=== PATIENT | female | born 1955 | race Caucasian/White ===

== ENCOUNTER 2023-11-11 11:02 | Observation (INO) | payer MEDICARE ==
[2023-11-11 11:53] LABS: #Basophils 0.03 10x3/uL (0.0-0.2); %Basophils 0.4 % (0.0-1.0); %Eosinophils 1.1 % (0.0-10.0); %Lymphocytes 29.1 % (21.0-51.0); %Monocytes 7.6 % (0.0-10.0); %Neutrophils 61.7 % (42.0-75.0); Hematocrit 42.3 % (36.0-47.0); Hemoglobin 13.9 g/dL (12.0-16.0); Mean Corpuscular HGB CONC 32.9 g/dL (32.0-36.0); Mean Corpuscular Hemoglobin 31.8 pg (27.0-31.0); Mean Corpuscular Volume 96.8 fL (78.0-98.0); Mean Platelet Volume 9.2 fL (7.4-10.4); Platelet Count 204 10x3/uL (130-400); Red Blood Cell (RBC) Count 4.37 mill/uL (4.20-5.40)
[2023-11-11] MEDS ORDERED: Aspirin Chewable 81 MG TAB ONE (12:04)
[2023-11-11 12:16] LABS: ALT (SGPT) 13 U/L (8-55); AST (SGOT) 15 U/L (5-34); Albumin 4.3 g/dL (3.4-4.8); Alkaline Phosphatase 103 U/L (40-110); Anion Gap 13 mmol/L (10-20); BUN (Urea Nitrogen) 14 mg/dL (9.8-20.1); Bilirubin, Total 0.4 mg/dL (0.2-1.2); Calc. Creatinine Clearance 0 mL/min (70-130); Calcium 9.7 mg/dL (7.8-10.44); Carbon Dioxide 21 mmol/L (23-31); Chloride 106 mmol/L (98-107); Estimated GFR 91; Globulin 3.3 g/dL (2.4-3.5); Glucose 104 mg/dL (80-115); Lipase 43 U/L (8-78); Magnesium 1.9 mg/dL (1.6-2.6); Potassium 4.2 mmol/L (3.5-5.1); Protein, Total 7.6 g/dL (5.8-8.1); Sodium 136 mmol/L (136-145)
[2023-11-11 12:17] LABS: Troponin I Less than 0.010 ng/mL (< 0.028)
[2023-11-11] MEDS ORDERED: Ondansetron ODT 4 MG TAB PO PRN (13:32)
[2023-11-11] MEDS ORDERED: Ondansetron PF 4 MG/2 ML Vial IVP PRN (13:32)
[2023-11-11] MEDS ORDERED: Acetaminophen 325 MG TAB PO PRN (13:32)
[2023-11-11] MEDS ORDERED: HYDROcodone/Acetaminophen 5/325 mg Tablet PO PRN (13:32)
[2023-11-11] MEDS ORDERED: Acetaminophen 650 MG Suppository PR PRN (13:32)
[2023-11-11 13:53] LABS: Bacteria/HPF None Seen HPF (None Seen); Bilirubin Negative (Negative); Blood, Urine Negative (Negative); CAUTI Indications for Culture Dysuria,urgency,freq; Clarity Clear (Clear); Glucose, Urine (Dipstick) Normal (Negative); Ketone, Urine Negative (Negative); Leukocyte 25 Leu/uL (Negative); Nitrite Negative (Negative); Protein, Urine (Dipstick) 10 mg/dL (Neg-Trace); RBC/HPF None Seen HPF (0-3); Specific Gravity, Urine 1.031 (1.002-1.036); Squamous Epithelial 0-3 HPF (0-3); Urobilinogen Normal mg/dL (Less than 2); WBC/HPF 0-3 HPF (0-3); pH, Urine 5.5 (5.0-9.0)
[2023-11-11 13:54] LABS: Urine Culture Reflex No No
[2023-11-11 15:52] VITALS: BMI 24.0
[2023-11-11 16:14] LABS: Troponin I Less than 0.010 ng/mL (< 0.028)
[2023-11-11 18:13] LABS: Troponin I Less than 0.010 ng/mL (< 0.028)
[2023-11-11] MEDS: HYDROcodone/Acetaminophen 5/325 mg Tablet PO PRN (19:54)
[2023-11-11] MEDS: Famotidine 20 MG TAB PO SCH (19:55)
[2023-11-11] MEDS: Valsartan 80 MG TAB PO SCH (19:55)
[2023-11-11] MEDS: Atorvastatin Calcium 40 MG TAB PO SCH (19:55)
[2023-11-12 04:32] LABS: #Basophils 0.04 10x3/uL (0.0-0.2); %Basophils 0.7 % (0.0-1.0); %Eosinophils 1.7 % (0.0-10.0); %Lymphocytes 45.7 % (21.0-51.0); %Monocytes 8.4 % (0.0-10.0); Hemoglobin 13.8 g/dL (12.0-16.0); Mean Corpuscular HGB CONC 32.9 g/dL (32.0-36.0); Mean Corpuscular Hemoglobin 31.7 pg (27.0-31.0); Mean Corpuscular Volume 96.6 fL (78.0-98.0); Platelet Count 185 10x3/uL (130-400); RBC Distribution Width 14.8 % (11.5-14.5); Red Blood Cell (RBC) Count 4.35 mill/uL (4.20-5.40)
[2023-11-12 04:51] LABS: Anion Gap 16 mmol/L (10-20); BUN (Urea Nitrogen) 14 mg/dL (9.8-20.1); Calc. Creatinine Clearance 69 mL/min (70-130); Calcium 9.4 mg/dL (7.8-10.44); Carbon Dioxide 19 mmol/L (23-31); Chloride 106 mmol/L (98-107); Estimated GFR 93; Glucose 99 mg/dL (80-115); Potassium 3.9 mmol/L (3.5-5.1); Sodium 137 mmol/L (136-145)
[2023-11-12] MEDS: Enoxaparin 40 MG (0.4 mL) SYRINGE SC SCH (08:05)
[2023-11-12] MEDS: Clopidogrel Bisulfate 75 MG TAB PO SCH (08:08)
[2023-11-12] MEDS: Aspirin 81 mg Enteric Coated Tablet PO SCH (08:08)
[2023-11-12] MEDS: Sertraline 25 MG TAB PO SCH (08:09)
[2023-11-12] MEDS ORDERED: Valsartan 80 MG TAB PO SCH (09:00)
[2023-11-12] MEDS ORDERED: ADENOSINE 60 MG/20 ML SDV ONE (09:19)
[2023-11-12 11:55] VITALS: BP 114/58; TEMP 98.5
[2023-11-12] MEDS: Ketorolac Tromethamine 30 MG (1 mL) VIAL IVP SCH (14:21)
== END 2023-11-12 15:24 | disposition home or self-care (01) ==
LOC: SUATTDRO 11:02 → ERS 11:02 → 2SW 15:18
PROVIDERS: ADMIT Family Medicine; ATTEND Family Medicine
PROC: B246ZZZ Ultrasonography of Right and Left Heart (ICD-10-PCS; principal; 2023-11-11)
DX: R07.9 Chest pain, unspecified (principal); I25.10 Atherosclerotic heart disease of native coronary artery without angina pectoris; E78.5 Hyperlipidemia, unspecified; I25.2 Old myocardial infarction; F32.A Depression, unspecified; B19.20 Unspecified viral hepatitis C without hepatic coma; I10 Essential (primary) hypertension; M79.602 Pain in left arm; Z79.02 Long term (current) use of antithrombotics/antiplatelets; Z79.899 Other long term (current) drug therapy; Z88.0 Allergy status to penicillin; Z95.5 Presence of coronary angioplasty implant and graft; Z90.710 Acquired absence of both cervix and uterus; Z90.89 Acquired absence of other organs
CPT/HCPCS: 71045; 78452; 80048; 80053; 81001; 83690; 83735; 83880; 84484 ×2; 85025 ×2; 93005; 93017; 93306; 99285; A9502; J0153; J1650; J1885; 36415; 96372; 96374; G0378

== ENCOUNTER 2023-12-09 06:18 | Day surgery (SDC) | payer MEDICARE ==
[2023-12-08 14:04] VITALS: BMI 24.8
[2023-12-09 07:32] LABS: #Basophils 0.05 10x3/uL (0.0-0.2); %Basophils 0.7 % (0.0-1.0); %Lymphocytes 31.1 % (21.0-51.0); %Monocytes 10.8 % (0.0-10.0); %Neutrophils 54.9 % (42.0-75.0); Hematocrit 43.4 % (36.0-47.0); Hemoglobin 14.4 g/dL (12.0-16.0); Mean Corpuscular HGB CONC 33.2 g/dL (32.0-36.0); Mean Corpuscular Hemoglobin 31.7 pg (27.0-31.0); Mean Corpuscular Volume 95.6 fL (78.0-98.0); Mean Platelet Volume 10.4 fL (7.4-10.4); Platelet Count 212 10x3/uL (130-400); RBC Distribution Width 14.5 % (11.5-14.5); Red Blood Cell (RBC) Count 4.54 mill/uL (4.20-5.40)
[2023-12-09] MEDS ORDERED: Verapamil 5 MG/2 ML VIAL ONE (07:58)
[2023-12-09] MEDS ORDERED: Heparin 10,000 UNITS/ 10 ML VIAL ONE (07:58)
[2023-12-09] MEDS ORDERED: Nitroglycerin 50 MG/250 ML BOT 250 ML ONE (07:59)
[2023-12-09] MEDS ORDERED: Midazolam HCl 2 mg/2 ml Vial ONE ×2 (08:54→09:37)
[2023-12-09] MEDS ORDERED: fentaNYL 50 mcg/mL 1 mL Vial ONE ×2 (08:54→09:36)
[2023-12-09 10:05] LABS: Anion Gap 15 mmol/L (10-20); BUN (Urea Nitrogen) 14 mg/dL (9.8-20.1); Calc. Creatinine Clearance 70 mL/min (70-130); Calcium 9.7 mg/dL (7.8-10.44); Carbon Dioxide 23 mmol/L (23-31); Chloride 105 mmol/L (98-107); Estimated GFR 91; Glucose 94 mg/dL (80-115); Potassium 3.9 mmol/L (3.5-5.1); Sodium 139 mmol/L (136-145)
[2023-12-09] MEDS ORDERED: Iopamidol 370 76% 100 ML VIAL ONE ×2 (12:05→12:23)
== END 2023-12-09 13:40 | disposition home or self-care (01) ==
LOC: SDC 06:18
PROVIDERS: ATTEND Internal Medicine Cardiovascular Disease
PROC: 4A023N7 Measurement of Cardiac Sampling and Pressure, Left Heart, Percutaneous Approach (ICD-10-PCS; principal; 2023-12-09)
DX: I25.2 Old myocardial infarction (principal); I10 Essential (primary) hypertension; E78.5 Hyperlipidemia, unspecified; I25.10 Atherosclerotic heart disease of native coronary artery without angina pectoris; B19.20 Unspecified viral hepatitis C without hepatic coma; Z90.89 Acquired absence of other organs; Z90.710 Acquired absence of both cervix and uterus; Z98.890 Other specified postprocedural states; Z88.0 Allergy status to penicillin; Z79.899 Other long term (current) drug therapy; Z79.02 Long term (current) use of antithrombotics/antiplatelets; F17.210 Nicotine dependence, cigarettes, uncomplicated
CPT/HCPCS: 80048; 85025; 85347; 92978; 93458; J1644; J2250; J3010; 36140; 93799; 99152; 99153; C1753; C1760; C1769; C1887; C1894; Q9967

== ENCOUNTER 2023-12-13 10:30 | Inpatient (IN) | payer MEDICARE ==
[2023-12-15] MEDS ORDERED: EPINEPHrine 1 MG/ML VIAL ONE (06:34)
[2023-12-15] MEDS ORDERED: PHENYLEPHRINE-NS 100 MCG/ML 10 ML SYRINGE ONE ×2 (06:34→06:54)
[2023-12-15] MEDS ORDERED: Bupivacaine PF 0.5% 30 ML VIAL ONE (06:35)
[2023-12-15] MEDS ORDERED: Albumin 5% 500 ML ONE (06:35)
[2023-12-15] MEDS ORDERED: Norepinephrine 4 MG/4 ML VIAL ONE (06:53)
[2023-12-15] MEDS ORDERED: ePHEDrine Sulfate 50 MG/10 ML VIAL ONE (06:53)
[2023-12-15] MEDS ORDERED: Rocuronium Bromide 10 MG/ML (10ML VIAL) ONE ×2 (06:53→08:45)
[2023-12-15] MEDS ORDERED: Midazolam HCl 2 mg/2 ml Vial ONE (06:53)
[2023-12-15] MEDS ORDERED: Fentanyl 250 MCG/5 ML VIAL ONE (06:53)
[2023-12-15] MEDS ORDERED: PROPOFOL 20 ML ONE (06:53)
[2023-12-15] MEDS ORDERED: CEFAZOLIN 1 GM VIAL ONE (06:54)
[2023-12-15] MEDS ORDERED: Lidocaine 2% PF 5 ML VIAL ONE (06:54)
[2023-12-15] MEDS ORDERED: Lidocaine 2% PF 100 mg/5 ml Syringe ONE ×2 (06:54→07:49)
[2023-12-15] MEDS ORDERED: Heparin 10,000 UNITS/1 ML VIAL 30,000 UNITS in Sodium Chloride 0.9% 1,000 ML FS SCH (07:15)
[2023-12-15] MEDS ORDERED: Mannitol 12.5 GM/50 ML ONE (07:49)
[2023-12-15] MEDS ORDERED: Aminocaproic Acid 5 GM/20 ML VIAL ONE (07:49)
[2023-12-15] MEDS ORDERED: Papaverine 60 MG/2 ML VIAL ONE (07:49)
[2023-12-15] MEDS ORDERED: Magnesium 5 GM/10 ML VIAL ONE (07:49)
[2023-12-15] MEDS ORDERED: Sodium Bicarb 50 mEq/50 ML VIAL ONE (07:49)
[2023-12-15] MEDS ORDERED: Heparin 5,000 UNITS/ML VIAL ONE (07:49)
[2023-12-15] MEDS ORDERED: Protamine Sulfate 250 MG/25 ML VIAL ONE (07:49)
[2023-12-15] MEDS ORDERED: Dextrose 50% Abboject 50 ML SYRINGE ONE (07:49)
[2023-12-15] MEDS ORDERED: Cardioplegic Soln 1,000 ML BAG ONE (07:49)
[2023-12-15] MEDS ORDERED: Potassium Chloride 60 mEq (30 mL) VIAL ONE (07:49)
[2023-12-15] MEDS ORDERED: Vancomycin 1 GM VIAL ONE (07:49)
[2023-12-15] MEDS ORDERED: Thrombin 5000 UNITS/5 ML VIAL ONE (07:49)
[2023-12-15] MEDS ORDERED: Calcium Chloride 1 GM/10 ML Abboject SYRINGE ONE (07:49)
[2023-12-15] MEDS ORDERED: Heparin 30,000 units/30 ml VIAL ONE (07:49)
[2023-12-15] MEDS ORDERED: Insulin Regular 300 UNITS/3 ML VIAL ONE (10:31)
[2023-12-15 12:39] LABS: Actual Bicarbonate (HCO3a) 20.3 mEq/L (22-28); Base Excess (BEa) -4.1 mEq/L (-2.0 to +3.0); CO2 Tension 34.1 mmHg (35.0-45.0); Calcium, Ionized (arterial) 1.02 mmol/L (1.12-1.30); Carboxyhemoglobin (COHb) 1.7 gm% (0.0-3.0); Hematocrit-ABG 27 % (36.0-47.0); Hemoglobin (Hb) 9.1 g/dL (12.0-16.0); Potassium - ABG Lab 3.47 mmol/L (3.70-5.30); pH, Arterial 7.392 (7.35-7.45)
[2023-12-15 12:40] LABS: ALV-art Gradient 144.175 mmHg (0-20); Puncture Site Arterial Line
[2023-12-15] MEDS ORDERED: fentaNYL 50 mcg/mL 1 mL Vial SLOW IVP PRN (12:45)
[2023-12-15] MEDS ORDERED: hydrALAZINE 20 MG/ML VIAL SLOW IVP PRN (12:45)
[2023-12-15] MEDS ORDERED: Ondansetron PF 4 MG/2 ML Vial IVP PRN (12:45)
[2023-12-15] MEDS ORDERED: Mag-Al 1200 mg/1200 mg/30 ML UDCUP PO PRN (12:45)
[2023-12-15] MEDS ORDERED: Promethazine HCl 25 MG/ML VIAL IM PRN (12:45)
[2023-12-15] MEDS ORDERED: Bisacodyl 10 MG SUPP PR PRN (12:45)
[2023-12-15] MEDS ORDERED: Bisacodyl 5 MG TAB PO PRN (12:45)
[2023-12-15] MEDS ORDERED: Albumin 5% 12.5 GM (250 mL) BOT IVPB PRN (12:45)
[2023-12-15] MEDS ORDERED: NOREPINEPHRINE 8 MG/250 ML-D5W 250 ML IVPB PRN (12:45)
[2023-12-15] MEDS ORDERED: Ipratropium/Albuterol 3 ML NEB NEB PRN (12:45)
[2023-12-15] MEDS: Morphine 2 MG/ML VIAL SLOW IVP PRN (12:49)
[2023-12-15 12:55] LABS: #Basophils Less than 0.03 10x3/uL (0.0-0.2); %Basophils 0.2 % (0.0-1.0); %Eosinophils 0.3 % (0.0-10.0); %Lymphocytes 12.9 % (21.0-51.0); %Monocytes 6.8 % (0.0-10.0); %Neutrophils 79.2 % (42.0-75.0); Hemoglobin 8.4 g/dL (12.0-16.0); Mean Corpuscular HGB CONC 32.3 g/dL (32.0-36.0); Mean Corpuscular Hemoglobin 32.1 pg (27.0-31.0); Mean Corpuscular Volume 99.2 fL (78.0-98.0); Mean Platelet Volume 9.9 fL (7.4-10.4); Platelet Count 131 10x3/uL (130-400); RBC Distribution Width 14.4 % (11.5-14.5); Red Blood Cell (RBC) Count 2.62 mill/uL (4.20-5.40)
[2023-12-15 13:07] LABS: INR-International Normal Ratio 1.3; Prothrombin Time 16.1 sec (12.0-14.7)
[2023-12-15 13:08] LABS: PTT 31.3 sec (22.9-36.1)
[2023-12-15] MEDS ORDERED: Nitroglycerin 50 MG/250 ML BOT 250 ML IVPB SCH (13:15)
[2023-12-15] MEDS: Post-Op Insulin Drip Protocol IVPB ONE (13:19)
[2023-12-15 13:28] LABS: Anion Gap 8 mmol/L (10-20); BUN (Urea Nitrogen) 10 mg/dL (9.8-20.1); Calc. Creatinine Clearance 84 mL/min (70-130); Calcium 6.9 mg/dL (7.8-10.44); Carbon Dioxide 20 mmol/L (23-31); Chloride 118 mmol/L (98-107); Estimated GFR 99; Glucose 162 mg/dL (80-115); Potassium 3.5 mmol/L (3.5-5.1); Sodium 142 mmol/L (136-145)
[2023-12-15] MEDS ORDERED: Dextrose 5% in Water 1,000 ML IV PRN (13:30)
[2023-12-15] MEDS ORDERED: Dextrose 50% Abboject 50 ML SYRINGE SLOW IVP PRN (13:30)
[2023-12-15] MEDS ORDERED: INSULIN REGULAR IN 0.9 % NACL 100 UNITS in Premix 1 BAG IVPB SCH (13:30)
[2023-12-15] MEDS ORDERED: Glucagon 1 MG/ML KIT SC PRN (13:30)
[2023-12-15] MEDS: Morphine 4 MG/ML VIAL ONE (13:33)
[2023-12-15] MEDS: Nitroglycerin 50 MG/250 ML BOT 250 ML ONE (13:40)
[2023-12-15] MEDS: Insulin Regular, Human 100 UNIT/ML 10 ML VIAL SC PRN (13:40)
[2023-12-15] MEDS: Potassium Chloride 20 MEQ (100 mL) BAG IVPB PRN (13:40)
[2023-12-15] MEDS: Magnesium 2 GM/50 ML(in water) 2 GM in Premix 1 BAG IVPB SCH (13:40)
[2023-12-15] MEDS: Sodium Chloride 0.9% 1,000 ML IV SCH (13:40)
[2023-12-15] MEDS: Albumin 5% 12.5 GM (250 mL) BOT IVPB PRN (14:25)
[2023-12-15] MEDS: CEFAZOLIN 2 GM in Sodium Chloride 0.9% 100 ML IVPB SCH (14:35)
[2023-12-15] MEDS: Aspirin Chewable 81 MG TAB PO SCH (14:37)
[2023-12-15] MEDS: Ketorolac Tromethamine 30 MG (1 mL) VIAL IVP SCH (16:43)
[2023-12-15 17:06] LABS: Actual Bicarbonate (HCO3a) 19.5 mEq/L (22-28); Base Excess (BEa) -5.5 mEq/L (-2.0 to +3.0); CO2 Tension 36.1 mmHg (35.0-45.0); Calcium, Ionized (arterial) 1.18 mmol/L (1.12-1.30); Carboxyhemoglobin (COHb) 1.3 gm% (0.0-3.0); Hematocrit-ABG 28 % (36.0-47.0); Hemoglobin (Hb) 9.5 g/dL (12.0-16.0); Potassium - ABG Lab 4.02 mmol/L (3.70-5.30)
[2023-12-15 17:14] LABS: ALV-art Gradient 71.775 mmHg (0-20); Puncture Site Arterial Line
[2023-12-15 18:54] LABS: Hematocrit 26.2 % (36.0-47.0); Hemoglobin 8.6 g/dL (12.0-16.0)
[2023-12-15] MEDS: fentaNYL 50 mcg/mL 1 mL Vial SLOW IVP PRN (19:31)
[2023-12-15] MEDS: Atorvastatin Calcium 20 MG TAB PO SCH (19:44)
[2023-12-15] MEDS: Famotidine/PF 20 mg/2ml Vial SLOW IVP SCH (19:44)
[2023-12-15] MEDS: HYDROcodone/Acetaminophen 5/325 mg Tablet PO PRN (20:34)
[2023-12-16 04:18] LABS: #Basophils Less than 0.03 10x3/uL (0.0-0.2); #Eosinphils Less than 0.03 10x3/uL (0.0-0.7); %Basophils 0.1 % (0.0-1.0); %Lymphocytes 11.3 % (21.0-51.0); %Monocytes 7.6 % (0.0-10.0); %Neutrophils 80.4 % (42.0-75.0); Hematocrit 25.4 % (36.0-47.0); Hemoglobin 8.1 g/dL (12.0-16.0); Mean Corpuscular HGB CONC 31.9 g/dL (32.0-36.0); Mean Corpuscular Hemoglobin 30.7 pg (27.0-31.0); Mean Corpuscular Volume 96.2 fL (78.0-98.0); Mean Platelet Volume 10.2 fL (7.4-10.4); Platelet Count 139 10x3/uL (130-400); RBC Distribution Width 14.6 % (11.5-14.5); Red Blood Cell (RBC) Count 2.64 mill/uL (4.20-5.40)
[2023-12-16 04:42] LABS: Anion Gap 9 mmol/L (10-20); BUN (Urea Nitrogen) 7 mg/dL (9.8-20.1); Calc. Creatinine Clearance 86 mL/min (70-130); Calcium 7.8 mg/dL (7.8-10.44); Carbon Dioxide 20 mmol/L (23-31); Chloride 114 mmol/L (98-107); Estimated GFR 100; Glucose 106 mg/dL (80-115); Sodium 139 mmol/L (136-145)
[2023-12-16] MEDS: Guaifenesin DM 100-10/5 ML UDCUP PO PRN (05:16)
[2023-12-16] MEDS: Acetaminophen 325 MG TAB PO PRN (05:16)
[2023-12-16] MEDS: Magnesium 2 GM/50 ML(in water) 2 GM in Premix 1 BAG IVPB SCH (08:08)
[2023-12-16] MEDS: Aspirin 325 MG TAB PO SCH (08:08)
[2023-12-16] MEDS ORDERED: Insulin Glargine 30 UNITS/0.3 ML VIAL SC PRN (13:20)
[2023-12-16] MEDS: Famotidine 20 MG TAB PO SCH (20:05)
[2023-12-17] MEDS: Furosemide 40 MG (4 mL) VIAL SLOW IVP SCH ×2 (08:37→13:10)
[2023-12-17] MEDS: Sertraline 25 MG TAB PO SCH (08:38)
[2023-12-17] MEDS ORDERED: Aspirin 81 mg Enteric Coated Tablet PO SCH (09:00)
[2023-12-17 15:14] VITALS: BMI 262062.7
[2023-12-17] MEDS: Metoprolol Tartrate 25 MG TAB PO SCH (20:41)
[2023-12-17] MEDS ORDERED: Atorvastatin Calcium 40 MG TAB PO SCH (21:00)
[2023-12-18 05:13] LABS: Anion Gap 13 mmol/L (10-20); BUN (Urea Nitrogen) 14 mg/dL (9.8-20.1); Calc. Creatinine Clearance 84 mL/min (70-130); Calcium 8.4 mg/dL (7.8-10.44); Carbon Dioxide 23 mmol/L (23-31); Chloride 110 mmol/L (98-107); Estimated GFR 98; Glucose 109 mg/dL (80-115); Potassium 3.7 mmol/L (3.5-5.1); Sodium 142 mmol/L (136-145)
[2023-12-18] MEDS: Furosemide 20 MG TAB PO SCH (08:36)
[2023-12-18] MEDS: HYDROcodone/Acetaminophen 5/325 mg Tablet PO PRN (10:20)
[2023-12-18 11:10] VITALS: TEMP 98.9
[2023-12-18 13:00] VITALS: BP 128/56
== END 2023-12-18 12:44 | disposition home or self-care (01) | DRG 236 ==
LOC: EDSTATUS 10:30 → SURG A 12-15 05:49 → CCU 12-15 12:39 → 2NO 12-16 20:38
PROVIDERS: ADMIT Student in an Organized Health Care Education/Training Program; ATTEND Student in an Organized Health Care Education/Training Program
PROC: 02100Z9 Bypass Coronary Artery, One Artery from Left Internal Mammary, Open Approach (ICD-10-PCS; principal; 2023-12-15)
PROC: 021109W Bypass Coronary Artery, Two Arteries from Aorta with Autologous Venous Tissue, Open Approach (ICD-10-PCS; 2023-12-15)
PROC: 06BQ4ZZ Excision of Left Saphenous Vein, Percutaneous Endoscopic Approach (ICD-10-PCS; 2023-12-15)
PROC: 5A1221Z Performance of Cardiac Output, Continuous (ICD-10-PCS; 2023-12-15)
PROC: 02L70CK Occlusion of Left Atrial Appendage with Extraluminal Device, Open Approach (ICD-10-PCS; 2023-12-15)
DX: I25.118 Atherosclerotic heart disease of native coronary artery with other forms of angina pectoris (principal); E78.5 Hyperlipidemia, unspecified; I25.2 Old myocardial infarction; I10 Essential (primary) hypertension; M81.0 Age-related osteoporosis without current pathological fracture; F17.210 Nicotine dependence, cigarettes, uncomplicated; F32.A Depression, unspecified; Z90.710 Acquired absence of both cervix and uterus
CPT/HCPCS: 36416; 36430; 71045; 80048; 82805; 85025; 85610; 85730; 86850; 86900; 86901; 93005; 93010; 93798; 94002; A4311; A4648; C1751; C1889; J0171; J0612; J0665; J0690; J1642; J1644; J1815; J1885; J1940; J2001; J2150; J2250; J2272; J2440; J2704; J2720; J3010; J3370; J3475; J3480; J3490; J7030; J7999; P9045; S0017